=== PATIENT | male | born 2000 | race Caucasian/White ===

== ENCOUNTER 2018-11-13 21:49 | Emergency (ER) | payer OTHER ==
--- NOTE | 2018-11-13 21:53 | EDM.PDOC ---
ED HPI GENERAL MEDICAL PROBLEM - General Chief Complaint: Skin Complaint Stated Complaint: Possible Shingles Time Seen by Provider: 11/13/18 21:52 Source of Information: Reports: Patient, RN, RN Notes Reviewed History Limitations: Reports: No Limitations - History of Present Illness INITIAL COMMENTS - FREE TEXT/NARRATIVE: Patient presents to the ED at [facility] for the evaluation of a skin rash. The rash started about 4 days ago. Patient states it started as a red spot on the left lateral chest wall. It has not spread to the left mid back and anterior left chest wall. The rash is slightly itchy and moderately painful. The rash is vesicular with blister clusters. The patient states he developed a headache earlier today. He also has some photophobia. Otherwise, no other symptoms. Onset Date: 11/09/18 - Related Data Allergies Allergy/AdvReac Type Severity Reaction Status Date / Time No Known Allergies Allergy Verified 11/13/18 22:01 Home Meds: Home Meds valACYclovir HCl [valACYclovir] 1,000 mg PO TID #16 tablet 11/13/18 [Rx] valACYclovir HCl [valACYclovir] 1,000 mg PO TID #5 tablet 11/13/18 [Rx] ED ROS GENERAL - Review of Systems Review Of Systems: See Below Constitutional: Reports: Fever. Denies: Chills, Weakness Respiratory: Denies: Shortness of Breath, Cough Cardiovascular: Denies: Chest Pain, Palpitations Skin: Reports: Rash Neurological: Reports: Headache ED EXAM, SKIN/RASH Exam: See Below Exam Limited By: No Limitations General Appearance: Alert, No Apparent Distress Respiratory/Chest: No Respiratory Distress, Lungs Clear, Normal Breath Sounds Cardiovascular: Normal Peripheral Pulses, Regular Rate, Rhythm Peripheral Pulses: 2+: Radial (L), Radial (R) Neurological: Alert, Oriented, Normal Cognition Skin: Erythema, Zoster-Like Rash Location, Skin: Chest, Back Characteristics: Vesicular, Erythematous Associated features: Warmth, Tenderness, Crusting Departure - Departure Time of Disposition: 22:07 Disposition: Home, Self-Care 01 Condition: Good Clinical Impression: Shingles rash Qualifiers: Herpes zoster complications: without complications Qualified Code(s): B02.9 - Zoster without complications - Discharge Information *PRESCRIPTION DRUG MONITORING PROGRAM REVIEWED*: Not Applicable *COPY OF PRESCRIPTION DRUG MONITORING REPORT IN PATIENT ZULEYMA: Not Applicable Prescriptions: valACYclovir HCl [valACYclovir] 1,000 mg PO TID #5 tablet valACYclovir HCl [valACYclovir] 1,000 mg PO TID #16 tablet Instructions: Shingles Referrals: Bulmaro Francois MD [ED Physician] - Forms: ED Department Discharge Additional Instructions: 1. Stay well hydrated and rest 2. Take antiviral medication for the full coarse, even if symptoms are better 3. Do not use any lotions, creams, or gels to the rash, this will make it worse 4. Use Tylenol/Advil for pain 5. Avoid people who are immunosuppressed, elderly, and children until rash has completely healed 6. See your PCP as symptoms warrant - Problem List Review Problem List Initiated/Reviewed/Updated: Yes - Assessment/Plan Assessment:: Shingles Plan: Assessment findings discussed with patient. Will start a 7 day course of Valtrex TID. Discussed patient to avoid contact with immunosuppressed, elderly, children and those who have not had chicken pox. Do not use any lotions, creams , etc. F/U with PCP as symptoms warrant
[2018-11-13] MEDS ORDERED: valACYclovir 1,000 MG Tab ONE (22:00)
== END 2018-11-13 22:30 | disposition home or self-care (01) ==
LOC: SUPCPDRO 21:49 → VM.ED 21:49
DX: B02.9 Zoster without complications (principal)
CPT/HCPCS: 99283; A9270-GY